=== PATIENT | male | born 1990 | race African-American/Black ===

== ENCOUNTER 2019-01-12 17:17 | Emergency (ER) | payer MEDICAID ==
[~2019-01-12] VITALS: Ht 172.7 cm; Wt 68.0 kg
[2019-01-12] MEDS ORDERED: KETOROLAC 30MG/ML VIAL IM ONE (20:00)
[2019-01-12 21:15] VITALS: BP 111/61
== END 2019-01-12 21:30 | disposition home or self-care (01) ==
LOC: ER 17:17
DX: K21.9 Gastro-esophageal reflux disease without esophagitis (principal); R10.9 Unspecified abdominal pain; V49.88XA Car occupant (driver) (passenger) injured in other specified transport accidents, initial encounter; Y93.89 Activity, other specified; Y92.89 Other specified places as the place of occurrence of the external cause; Y99.8 Other external cause status
CPT/HCPCS: 71101; 96372; 99283; J1885